=== PATIENT | male | born 1945 | race Caucasian/White ===

== ENCOUNTER 2018-07-11 21:50 | Emergency (ER) | payer BC ==
[2018-07-11] MEDS ORDERED: NS 0.9% 1000 ML* 2,000 ML IV ONE (21:58)
--- NOTE | 2018-07-11 22:26 | ED ---
Syncope/Near Syncope - HPI Summary HPI Summary: The pt is a 73 year old M presenting to the ED [facility] with a chief complaint of syncope onset suddenly at dinner tonight. The same thing happened around three years ago where he felt fine and then suddenly passed out. They did tests and found that his carotid arteries were both 80-90% blocked. The pt denies abd or chest pain. The pt reports a hx of diabetes type 2 and HTN, and symptoms including nausea, sweatiness, dizziness, and lightheadedness. - History Of Current Complaint Chief Complaint: EDSyncope Time Seen by Provider: 07/11/18 21:57 Hx Obtained From: Patient Onset/Duration: Sudden Onset, Still Present Timing: Constant Context: Witnessed Activity At Onset: At Rest Associated Head Trauma: No Aggravating Factor(s): Position Change Alleviating Factor(s): Rest Associated Signs And Symptoms: Shortness Of Breath, Vomiting - Allergies/Home Medications Allergies/Adverse Reactions: Allergies Allergy/AdvReac Type Severity Reaction Status Date / Time No Known Allergies Allergy Verified 07/11/18 22:06 Home Medications: Home Medications Aspirin TAB* [Aspirin 325 MG TAB*] 325 mg PO DAILY 07/11/18 [History Confirmed 07/11/18] Atorvastatin* [Lipitor*] 80 mg PO DAILY 07/11/18 [History Confirmed 07/11/18] Lisinopril TAB* [Prinivil TAB 5 MG*] 5 mg PO DAILY 07/11/18 [History Confirmed 07/11/18] Metoprolol Tartrate TAB* [Lopressor TAB*] 50 mg PO DAILY 07/11/18 [History Confirmed 07/11/18] metFORMIN* [Glucophage 500 MG TAB *] 500 mg PO BID 07/11/18 [History Confirmed 07/11/18] PMH/Surg Hx/FS Hx/Imm Hx Endocrine/Hematology History: Reports: Hx Diabetes - type 2 Cardiovascular History: Reports: Hx Hypertension, Hx Syncope - ~3 years ago Infectious Disease History: No Infectious Disease History: Denies: Traveled Outside the [place] in Last 30 Days - Family History Known Family History: Negative: Hypertension - Social History Lives: With Family Review of Systems Positive: Skin Diaphoresis Negative: Chest Pain Positive: Nausea. Negative: Abdominal Pain Neurological: Other - lightheadedness All Other Systems Reviewed And Are Negative: Yes Physical Exam - Summary Physical Exam Summary: Appearance: Well-appearing, Well-nourished, lying in bed comfortably Skin: Warm, diaphoretic, no obvious rash Eyes: sclera anicteric, no conjunctival pallor ENT: mucous membranes moist, pharynx appears normal Neck: Supple, nontender, well-healing surgical scar in L neck. Respiratory: Clear to auscultation, no signs of respiratory distress Cardiovascular: Bradycardia. No murmurs. Normal distal pulses in tibial and radial bilaterally. Abdomen: Soft, nontender, normal active bowel sounds present Musculoskeletal: Normal, Strength/ROM Intact Neurological: A&Ox3, awake and alert, mentation is normal, speech is fluent and appropriate Psychiatric: affect is normal, does not appear anxious or depressed Triage Information Reviewed: Yes Vital Signs On Initial Exam: Initial Vitals Temp Pulse Resp BP Pulse Ox 97.0 F 54 16 117/54 95 07/11/18 21:53 07/11/18 21:53 07/11/18 21:53 07/11/18 21:53 07/11/18 21:53 Vital Signs Reviewed: Yes Diagnostics - Vital Signs Vital Signs Temp Pulse Resp BP Pulse Ox 07/11/18 22:07 54 15 107/54 95 07/11/18 22:05 53 17 92 07/11/18 21:53 97.0 F 54 16 117/54 95 - Laboratory Lab Results: Lab Results 07/11/18 Range/Units 22:04 POC Glucose (mg/dL) 132 H (70-100) mg/dL Result Diagrams: 07/11/18 22:08 07/11/18 22:08 Lab Statement: Any lab studies that have been ordered have been reviewed, and results considered in the medical decision making process. - Radiology Chest XRay Xray Interpretation: No Acute Changes Radiology Interpretation Completed By: ED Physician - Radiologist has not yet reviewed this report. - EKG 2202 Cardiac Rate: Bradycardia - 52 bpm EKG Rhythm: Sinus Bradycardia ST Segment: Normal Ectopy: None EKG Interpretation: Borderline prolonged OR interval Re-Evaluation - Re-Evaluation 1 Re-Evaluation Time: 01:00 Change: Improved Comment: Blood pressure and pulse are now normal, pt is feeling much better and would like to go home. The pt is stable for discharge. Course/Dx Course Of Treatment: The pt is a 73 year old male presenting to the ED [facility] because he passed out tonight at dinner suddenly. The pt has a hx of carotid artery blockage. The pt presently has nausea, dizziness, sweatiness, and is lightheaded. In the ED, the pt vomited and felt better afterwards. - Diagnoses Provider Diagnoses: Vasovagal syncope Discharge - Sign-Out/Discharge Documenting (check all that apply): Patient Departure - Discharge Plan Condition: Improved Disposition: HOME Patient Education Materials: Syncope (ED) Referrals: [facility] [Outside] Additional Instructions: I think the metoprolol (pink pill) was a culprit tonight. Stop that medication until you get a chance to talk to the prescribing physician about it. - Billing Disposition and Condition Condition: IMPROVED Disposition: Home - Attestation Statements Document Initiated by Ev: Yes Documenting Scribe: Sabrina Perea Provider For Whom Ev is Documenting (Include Credential): Chacho Naranjo MD. Scribe Attestation: Sabrina Morgan scribed for Chacho Naranjo MD. on 07/12/18 at 0644. Scribe Documentation Reviewed: Yes Provider Attestation: The documentation as recorded by the scribe, Sabrina Perea accurately reflects the service I personally performed and the decisions made by me, Chacho Naranjo MD.
[2018-07-11 22:36] LABS: ABS Basophils 0 10^3/ul (0-0.2); ABS Eosinophils 0.2 10^3/ul (0-0.6); ABS Lymphocytes 2.8 10^3/ul (1.0-4.8); ABS Monocytes 0.7 10^3/ul (0-0.8); ABS Neutrophils 5.4 10^3/ul (1.5-7.7); ABS Nucleated RBC 0 10^3/ul; Eosinophil % 2.1 % (0-6); Hematocrit 43 % (42-52); Hemoglobin 14.3 g/dl (14.0-18.0); Lymphocyte % 30.9 % (25-47); Mean Corpuscular HGB Conc 33 g/dl (31-36); Mean Corpuscular Hemoglobin 32 pg (27-31); Mean Corpuscular Volume 95 fL (80-94); Mean Platelet Volume 7.5 um3 (7.4-10.4); Nucleated Red Blood Cells % 0.1; Platelet Count 255 10^3/ul (150-450); Red Blood Count 4.49 10^6/ul (4.00-5.40); Red Cell Distribution Width 13 % (10.5-15); White Blood Count 9.2 10^3/ul (3.5-10.8)
[2018-07-11 22:50] LABS: EGFR Non-African American 57.7 (>60)
[2018-07-12 00:59] LABS: Urine Appearance Cloudy; Urine Blood Negative (Negative); Urine Color Yellow; Urine Ketones Trace (Negative); Urine Protein Negative (Negative); Urine Red Blood Cell Trace(0-2/hpf) (Absent); Urine Specific Gravity 1.019 (1.010-1.030); Urine Urobilinogen Negative (Negative); Urine White Blood Cell 2+(11-20/hpf) (Absent)
[2018-07-12 01:39] VITALS: BP 141/68
--- NOTE | 2018-07-12 09:04 | RAD ---
Indication: Near syncopal episode. Comparison: No relevant prior exams available on the [facility] for comparison. Technique: Upright AP 2240 hours Report: Rarefaction of pulmonary markings at the upper lung zones. No focal pulmonary lesion, compelling alveolar consolidation, pleural effusion, pneumothorax. Upper normal heart size. Unremarkable central pulmonary vasculature. IMPRESSION: #. Stigmata of probable chronic obstructive pulmonary disease. #. No acute cardiopulmonary process evident. R0
== END 2018-07-12 01:44 | disposition home or self-care (01) ==
LOC: ED 21:50
DX: R55 Syncope and collapse (principal); R00.1 Bradycardia, unspecified; E11.9 Type 2 diabetes mellitus without complications; I10 Essential (primary) hypertension; I65.29 Occlusion and stenosis of unspecified carotid artery; R11.0 Nausea; R42 Dizziness and giddiness; Z79.84 Long term (current) use of oral hypoglycemic drugs; Z79.899 Other long term (current) drug therapy
CPT/HCPCS: 36415; 71045; 80053; 80320; 81003; 81015; 83605; 84443; 84484; 85025; 87086; 93005; 96360; 99284; G0480